=== PATIENT | female | born 1970 | race Caucasian/White ===

== ENCOUNTER 2017-01-12 10:30 | Emergency (ER) | payer OTHER ==
--- NOTE | ~2017-01-12 | CR93 ---
[facility]. [facility] A Service of [facility] & [facility] RADIOLOGY TEXT RESULTS PATIENT: HEMANT HOWELL LOCATION: SED : 68 UNIT #: [id number] AGE: [address]: Franca Huerta SEX: F ORDER DR: [id number] [place] [id number] E MR#: [id number] Acc #: [id number] NAME: HEMANT HOWELL : 1970 SEX: F STUDY DATE/TIME: 01/12/2017 UNIT: SED ROOM: STUDY DESCRIPTION: CR Elbow Min 3 Views Lt Attending Physician: Franca Huerta Pa-C Ordering Physician: Franca Huerta Pa-C Primary Care Physician: Liset Alexander M.D. MEDICAL IMAGING REPORT This report is preliminary unless electronic signature is present. EXAM Left elbow 3 views 01/12/2017 1101 hours. HISTORY Patient fell today 30 minutes prior to admission. Elbow pain and upper arm pain. COMPARISON None FINDINGS AP, lateral, and oblique views of the left elbow demonstrate no joint effusion or fracture. No degenerative change. IMPRESSION Negative left elbow. Dictated by... Cherri Lopez M.D. THIS IS AN ELECTRONICALLY VERIFIED REPORT Cherri Lopez M.D. at 01/12/2017 2:09 PM Bashir TD: 01/12/2017 12:37 JOB #: [id number] MEDICAL IMAGING REPORT Page 1 of 1
--- NOTE | ~2017-01-12 | CR229 ---
[facility] A Service [facility] RADIOLOGY TEXT RESULTS PATIENT: HEMANT HOWELL LOCATION: SED : [birth year] UNIT #: [id number] AGE: [address]: Franca Huerta SEX: F ORDER DR: [id number] [address] [id number] E MR#: [id number] Acc #: [id number] NAME: HEMANT HOWELL : 1970 SEX: F STUDY DATE/TIME: 01/12/2017 11:01 UNIT: SED ROOM: STUDY DESCRIPTION: CR Shoulder Min 2 View Lt Attending Physician: Franca Huerta Pa-C Ordering Physician: Franca Huerta Pa-C Primary Care Physician: Liset Alexander M.D. MEDICAL IMAGING REPORT This report is preliminary unless electronic signature is present. EXAM Left shoulder 3 views 01/12/2017 11:01 hours HISTORY A 46-year-old who fell 30 minutes prior to admission. Left upper arm, shoulder and elbow pain since fall. COMPARISON Portable chest film 06/07/2010 FINDINGS AP views in internal-external rotation and a scapula Y-view demonstrate no dislocation at the glenohumeral joint. There is mild elevation of the distal clavicle relative to the acromion which appears similar to the 11 09/15/2009 chest film and is felt not acute. The clavicle is intact. IMPRESSION No acute fracture or dislocation. There is minimal elevation of the distal clavicle relative to the acromion which is unchanged from chest film 06/07/2010 and felt not acute. Dictated by... Cherri Lopez M.D. THIS IS AN ELECTRONICALLY VERIFIED REPORT Cherri Lopez M.D. at 01/12/2017 2:09 PM Suzanne TD: 01/12/2017 12:36 JOB #: [id number] [facility] A [facility] RADIOLOGY TEXT RESULTS PATIENT: HEMANT HOWELL LOCATION: [facility] : [birth year] UNIT #: [id number] AGE: [address]: Franca Huerta SEX: F ORDER DR: MEDICAL IMAGING REPORT Page 1 of 1
[~2017-01-12 10:30] MED LIST: CIPRO PO; FLAGYL PO; HYDROCODON-ACE1 EAC1 PO; PRILOSEC PO; PROTONIX PO; PROVERA PO; PROVERA10 MG PO
[2017-01-12] MEDS ORDERED: VOLTAREN75 MG PO (12:10)
== END 2017-01-12 12:14 | disposition home or self-care (01) ==
LOC: SED 10:30
DX: S43.402A Unspecified sprain of left shoulder joint, initial encounter (principal); W01.0XXA Fall on same level from slipping, tripping and stumbling without subsequent striking against object, initial encounter; Y92.69 Other specified industrial and construction area as the place of occurrence of the external cause; Y99.0 Civilian activity done for income or pay; Z88.0 Allergy status to penicillin
CPT/HCPCS: 73030; 73080; 99284